=== PATIENT | male | born 1990 | race Caucasian/White ===

== ENCOUNTER 2016-08-11 08:32 | Inpatient (IN) | payer SELFPAY ==
[~2016-08-11] VITALS: Ht 175.3 cm; Wt 63.5 kg
[2016-08-11 08:56] VITALS: BP 158/85; PULSE 84; RESP 15; TEMP 98.3; O2SAT 100
[2016-08-11 09:43] LABS: AUTOMATED NEUTROPHIL # 5.5 TH/MM3 (1.8-7.7); BASOPHIL % 0.4 % (0.0-2.0); EOSINOPHIL # 0.1 TH/MM3 (0-0.4); EOSINOPHIL % 0.8 % (0.0-4.0); HEMATOCRIT 41.6 % (39.0-51.0); HEMO FLAGS DIFF FINAL; LYMPH % 17.8 % (9.0-44.0); LYMPHOCYTE # 1.3 TH/MM3 (1.0-4.8); MEAN CELL VOLUME 89.5 FL (80.0-100.0); MEAN CORPUSCULAR HEMOGLOBIN 31.5 PG (27.0-34.0); MEAN CORPUSCULAR HGB CONC 35.2 % (32.0-36.0); MONO % 4.7 % (0.0-8.0); NEUT % 76.3 % (16.0-70.0); PLATELET COUNT 221 TH/MM3 (150-450); RED BLOOD COUNT 4.65 MIL/MM3 (4.50-5.90); RED CELL DISTRIBUTION WIDTH 12.6 % (11.6-17.2); WHITE BLOOD COUNT 7.2 TH/MM3 (4.0-11.0)
[2016-08-11 09:58] LABS: ANION GAP 7 MEQ/L (5-15)
[2016-08-11 10:01] LABS: ALKALINE PHOSPHATASE 90 U/L (45-117); ALT (GPT) 23 U/L (12-78); AST (GOT) 9 U/L (15-37); BICARBONATE 27.1 MEQ/L (21.0-32.0); BLOOD UREA NITROGEN 8 MG/DL (7-18); CHLORIDE 106 MEQ/L (98-107); GLOMERULAR FILTRATION RATE 90 ML/MIN (>89); POTASSIUM 3.2 MEQ/L (3.5-5.1); SODIUM (NA) 140 MEQ/L (136-145); TOTAL BILIRUBIN ADULT 0.4 MG/DL (0.2-1.0)
[2016-08-11 12:15] LABS: AMPHETAMINE, URINE NEG (NEG); BARBITURATES, URINE NEG (NEG); COCAINE, URINE NEG (NEG)
[2016-08-11] MEDS ORDERED: POTASSIUM CHLORIDE 25 MEQ EFFERVESCENT TAB PO ONE (12:15)
--- NOTE | 2016-08-11 12:37 | PD ---
HPI Chief Complaint: Psychiatric Symptoms Time Seen by Provider: 09:07 Travel History International Travel<30 days: No Contact w/Intl Traveler<30days: No Traveled to known affect area: No History of Present Illness HPI 26-year-old male came to the emergency room for auditory hallucinations. Says that the voices are telling him to kill himself. He does not want to . He looks like he is responding to a internal stimuli. FOR[facility]LY [facility], [facility] Past Medical History Narrative Medical List of his past medical history as reviewed from the nursing note. Medical History: Denies Significant Hx Tetanus Vaccination: > 5 Years Influenza Vaccination: No Past Surgical History Surgical History: No Previous Surgery Social History Alcohol Use: No Tobacco Use: No Substance Use: Yes (MARIJUANA, HEMA, HEROIN) Allergies-Medications (Allergen,Severity, Reaction): Coded Allergies: No Known Allergies (Unverified , 08/11/16) Comments No known drug allergies. Reported Meds & Prescriptions Reported Meds & Active Scripts Active No Active Prescriptions or Reported Medications Narrative Medication List of his home medications reviewed from the nursing note. Review of Systems Except as stated in HPI: all other systems reviewed are Neg Physical Exam Narrative GENERAL: Awake, alert, no obvious distress SKIN: Warm and dry. HEAD: Atraumatic. Normocephalic. EYES: Pupils equal and round. No scleral icterus. No injection or drainage. ENT: No nasal bleeding or discharge. Mucous membranes pink and moist. NECK: Trachea midline. No JVD. CARDIOVASCULAR: Regular rate and rhythm. No murmur appreciated. RESPIRATORY: No accessory muscle use. Clear to auscultation. Breath sounds equal bilaterally. GASTROINTESTINAL: Abdomen soft, non-tender, nondistended. Hepatic and splenic margins not palpable. MUSCULOSKELETAL: No obvious deformities. No clubbing. No cyanosis. No edema. NEUROLOGICAL: Awake and alert. No obvious cranial nerve deficits. Motor grossly within normal limits. Normal speech. PSYCHIATRIC: Unable to assess. Patient seems to be responding to internal stimuli Data Data Last Documented VS Vital Signs Date Time Temp Pulse Resp B/P Pulse Ox O2 Delivery O2 Flow Rate FiO2 08/11/16 13:03 78 18 138/80 99 Room Air 08/11/16 08:56 98.3 Orders Complete Blood Count With Diff (08/11/16 09:07) Comprehensive Metabolic Panel (08/11/16 09:07) Drug Screen, Random Urine (08/11/16 09:07) Alcohol (Ethanol) (08/11/16 09:07) Psych Screen (08/11/16 09:07) Potassium Chloride Eff (K-Lyte Cl Eff) (08/11/16 12:15) Diet Regular Basic (08/11/16 Dinner) Admit Order (Ed Use Only) (08/11/16 ) Admit To Inpatient Psych (08/11/16 ) Vital Signs (Adult) ANTONIO.Q12H.E (08/11/16 15:51) Activity Oob Ad Jovanna (08/11/16 15:51) Level Of Observation (Psych) (08/11/16 15:51) Aims-Abnormal Invol Move Scale ONCE (08/11/16 15:51) Lorazepam (Ativan) (08/11/16 16:00) Lorazepam Inj (Ativan Inj) (08/11/16 16:00) Diphenhydramine (Benadryl) (08/11/16 16:00) Acetaminophen (Tylenol) (08/11/16 16:00) Magnesium Hydroxide Liq (Milk Of Magnesi (08/11/16 16:00) Al-Mag Hy-Si 40-40-4 Mg/Ml Liq (Mag-Al P (08/11/16 16:00) Nicotine 21 Mg Patch.24 Hr (Habitrol 21 (08/12/16 09:00) Benztropine (Cogentin) (08/11/16 16:00) Benztropine Inj (Cogentin Inj) (08/11/16 16:00) Basic Metabolic Panel (Bmp) (08/12/16 06:00) Lipid Profile (08/12/16 06:00) Magnesium (Mg) (08/12/16 06:00) Hemoglobin (Hgb) A1c (08/12/16 06:00) Remove Old Patch (08/12/16 09:00) Thyroid Stimulating Hormone (08/11/16 16:05) Rapid Plasmin Reagin Screen (08/11/16 16:05) Hiv Antibody Screen (08/11/16 16:05) Ammonia (08/11/16 16:05) Vitamin B12 (08/11/16 16:05) Ct Brain W/O Iv Contrast(Rout) (08/11/16 ) Labs Laboratory Tests Test 08/11/16 08/11/16 09:30 11:55 White Blood Count 7.2 TH/MM3 Red Blood Count 4.65 MIL/MM3 Hemoglobin 14.7 GM/DL Hematocrit 41.6 % Mean Corpuscular Volume 89.5 FL Mean Corpuscular Hemoglobin 31.5 PG Mean Corpuscular Hemoglobin 35.2 % Concent Red Cell Distribution Width 12.6 % Platelet Count 221 TH/MM3 Mean Platelet Volume 9.0 FL Neutrophils (%) (Auto) 76.3 % Lymphocytes (%) (Auto) 17.8 % Monocytes (%) (Auto) 4.7 % Eosinophils (%) (Auto) 0.8 % Basophils (%) (Auto) 0.4 % Neutrophils # (Auto) 5.5 TH/MM3 Lymphocytes # (Auto) 1.3 TH/MM3 Monocytes # (Auto) 0.3 TH/MM3 Eosinophils # (Auto) 0.1 TH/MM3 Basophils # (Auto) 0.0 TH/MM3 CBC Comment DIFF FINAL Differential Comment Sodium Level 140 MEQ/L Potassium Level 3.2 MEQ/L Chloride Level 106 MEQ/L Carbon Dioxide Level 27.1 MEQ/L Anion Gap 7 MEQ/L Blood Urea Nitrogen 8 MG/DL Creatinine 1.01 MG/DL Estimat Glomerular Filtration 90 ML/MIN Rate Random Glucose 105 MG/DL Calcium Level 8.9 MG/DL Total Bilirubin 0.4 MG/DL Aspartate Amino Transf 9 U/L (AST/SGOT) Alanine Aminotransferase 23 U/L (ALT/SGPT) Alkaline Phosphatase 90 U/L Total Protein 7.4 GM/DL Albumin 4.3 GM/DL Vitamin B12 Level 511 PG/ML Thyroid Stimulating Hormone 1.780 uIU/ML 3rd Gen Ethyl Alcohol Level LESS THAN 3 MG/DL Urine Opiates Screen NEG Urine Barbiturates Screen NEG Urine Amphetamines Screen NEG Urine Benzodiazepines Screen NEG Urine Cocaine Screen NEG Urine Cannabinoids Screen POS MDM Medical Decision Making Medical Screen Exam Complete: Yes Emergency Medical Condition: Yes Medical Record Reviewed: Yes Differential Diagnosis Psychosis, auditory hallucinations, substance abuse Narrative Course 12:30 PM patient is medically cleared for psych screen. Procedures EKG Prior to Arrival: No Scripts No Active Prescriptions or Reported Meds Yasmin Garibay MD Aug 11, 2016 12:37
[2016-08-11 13:03] VITALS: BP 138/80; PULSE 78; RESP 18; O2SAT 99
[2016-08-11] MEDS ORDERED: BENZTROPINE MESYLATE 2 MG/2 ML VIAL IM PRN (16:00)
[2016-08-11] MEDS ORDERED: LORazepam 2 MG/ML VIAL IM PRN (16:00)
[2016-08-11] MEDS ORDERED: BENZTROPINE MESYLATE 1 MG TAB PO PRN (16:00)
[2016-08-11] MEDS ORDERED: ALUMINUM/MAGNESIUM/SIMETH 30 ML CUP PO PRN (16:00)
[2016-08-11] MEDS ORDERED: MAGNESIUM HYDROXIDE SUSP 30 ML CUP PO PRN (16:00)
[2016-08-11] MEDS ORDERED: ACETAMINOPHEN 325 MG TAB PO PRN (16:00)
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
[2016-08-11 17:28] VITALS: BP 138/80; PULSE 78; RESP 18; O2SAT 99
--- NOTE | 2016-08-11 17:35 | RADRPT ---
EXAM DATE/TIME: 08/11/2016 17:06 [facility] COMPARISON: No previous studies available for comparison. INDICATIONS : Altered mental status. Auditory hallucinations. RADIATION DOSE: 56.35 CTDIvol (mGy) MEDICAL HISTORY : None SURGICAL HISTORY : None. ENCOUNTER: Initial ACUITY: 3 days PAIN SCALE: 0/10 LOCATION: cranial TECHNIQUE: Multiple contiguous axial images were obtained of the head. Using automated exposure control and adj ustment of the mA and/or kV according to patient size, radiation dose was kept as low as reasonably a chievable to obtain optimal diagnostic quality images. FINDINGS: CEREBRUM: The ventricles are normal for age. No evidence of midline shift, mass lesion, hemorrhage or acute in farction. No extra-axial fluid collections are seen. POSTERIOR FOSSA: The cerebellum and brainstem are intact. The 4th ventricle is midline. The cerebellopontine angle i s unremarkable. EXTRACRANIAL: The visualized portion of the orbits is intact. SKULL: The calvaria is intact. No evidence of skull fracture. CONCLUSION: Normal examination. Kristin Reagan MD on August 11, 2016 at 17:31 Board Certified Radiologist. This report was verified electronically.
[2016-08-11 18:30] VITALS: BP 127/70; PULSE 104; PULSE 68; RESP 17; O2SAT 98
[2016-08-11 20:16] VITALS: BP 149/81; PULSE 99; RESP 18; TEMP 99.1
[2016-08-11] MEDS: LORazepam 1 MG TAB PO PRN (20:26)
[2016-08-11] MEDS ORDERED: OLANZapine 2.5 MG TAB PO SCH (21:00)
[2016-08-12 05:20] VITALS: BP 93/52; PULSE 69; RESP 18; TEMP 97.6; O2SAT 97
[2016-08-12 07:58] LABS: ANION GAP 6 MEQ/L (5-15); BICARBONATE 28.9 MEQ/L (21.0-32.0); BLOOD UREA NITROGEN 12 MG/DL (7-18); CHLORIDE 109 MEQ/L (98-107); GLOMERULAR FILTRATION RATE 81 ML/MIN (>89); HDL CHOLESTEROL 76.4 MG/DL (40.0-60.0); LDL CHOLESTEROL 67 MG/DL (0-99); MAGNESIUM 2.1 MG/DL (1.5-2.5); SODIUM (NA) 144 MEQ/L (136-145)
[2016-08-12] MEDS: REMOVE OLD PATCH T-DERMAL SCH (08:48)
[2016-08-12] MEDS: NICOTINE 21 MG/24 HR PATCH T-DERMAL SCH (08:48)
[2016-08-12] MEDS: LORazepam 1 MG TAB PO PRN ×2 (09:09→22:13)
--- NOTE | 2016-08-12 11:50 | HHI.PYPN ---
Subjective Remarks Patient seen and examined with counselor. Chart reviewed. Case discussed with nursing staff reports patient was complaining of deprecatory auditory hallucinations. Apparently patient also became somewhat behaviorally disinhibited overnight and disrobed and ran down the melendez. On my examination today, the patient reports that he slept well with Zyprexa. He feels that his thoughts are more organized today. He still feels like he can perceive the thoughts of others and says "there is still bouncing off my head." He also endorses ongoing deprecatory auditory hallucinations. He denies side effects from medications. Agreeable to a titration of his Zyprexa. Review of Systems ROS Limitations: Psychotic, Poor Historian Other No physical complaints today Objective Alert: Yes [place]: Person, Place Mood: Calm Affect: Blunted Memory Intact: Comment (fair on clinical exam) Hallucinations: Auditory (deprecatory) Delusions: Yes Delusion Type: Paranoid Suicidal: Ideation (none) Homicidal: Ideation (none) Insight/Judgement Fair Remarks No motoric abnormalities noted. Thought processes fairly linear within delusional system. Speech within normal limits for rate, tone and volume Labs Test 08/11/16 08/12/16 11:55 07:12 Urine Opiates Screen NEG Urine Barbiturates Screen NEG Urine Amphetamines Screen NEG Urine Benzodiazepines Screen NEG Urine Cocaine Screen NEG Urine Cannabinoids Screen POS Sodium Level 144 MEQ/L Potassium Level 4.0 MEQ/L Chloride Level 109 MEQ/L Carbon Dioxide Level 28.9 MEQ/L Anion Gap 6 MEQ/L Blood Urea Nitrogen 12 MG/DL Creatinine 1.11 MG/DL Estimat Glomerular Filtration 81 ML/MIN Rate Random Glucose 93 MG/DL Calcium Level 9.0 MG/DL Magnesium Level 2.1 MG/DL Ammonia 17 MCMOL/L Triglycerides Level 48 MG/DL Cholesterol Level 153 MG/DL LDL Cholesterol 67 MG/DL HDL Cholesterol 76.4 MG/DL Cholesterol/HDL Ratio 2.00 RATIO Rapid Plasma Reagin NON-REACTIVE HIV (1&2) Antibody NEGATIVE Labs reviewed. First break psychosis workup unremarkable. Head CT read as negative for acute process. Vitals/IOs Vital Signs Date Time Temp Pulse Resp B/P Pulse Ox O2 Delivery O2 Flow Rate FiO2 08/12/16 05:20 97.6 69 18 93/52 97 08/11/16 18:30 Room Air Assessment & Plan Problem List: (1) Other psychotic disorder not due to a substance or known physiological condition ICD Code: F28 (2) Cannabis abuse ICD Code: F12.10 Assessment & Plan Titrate Zyprexa to 5 mg at bedtime. Could consider further titration over the weekend so long as this is well tolerated. I will order his blood pressure rechecked as it was somewhat low this morning. Continue other medications and care as ordered. Justification for Cont. Inpt. Impairments in reality construction. Medication changes. Risk for decompensation. Discharge Planning Pending psychiatric stabilization Request HC Surrog/Guard Advoc?: No Abdoulaye Preciado MD Aug 12, 2016 11:50
[2016-08-12 13:18] LABS: HEMOGLOBIN A1b 0.9 %; HEMOGLOBIN Ao 86.2 %; HEMOGLOBIN F 0.9 %; HEMOGLOBIN LA1C 1.9 %; HEMOGLOBIN P3 3.6 %
[2016-08-12 14:17] VITALS: BP 132/69; PULSE 70; O2SAT 96
[2016-08-12 18:32] VITALS: BP 133/66; PULSE 101; RESP 16; TEMP 98.5; O2SAT 98
[2016-08-12] MEDS: OLANZapine 5 MG TAB PO SCH (20:47)
[2016-08-13 05:25] VITALS: BP 134/73; PULSE 82; RESP 18; TEMP 98.4; O2SAT 99
[2016-08-13] MEDS: NICOTINE 21 MG/24 HR PATCH T-DERMAL SCH (08:34)
[2016-08-13] MEDS: REMOVE OLD PATCH T-DERMAL SCH (09:00)
--- NOTE | 2016-08-13 16:55 | HHI.PYPN ---
Subjective Remarks Patient was seen and case discussed with nursing. Patient is very pleasant and cooperative during the interview. Per nursing he has been helping limited. Past tasks throughout the day. Patient is logical, organized. Patient has good insight and realizes that his paranoia and hallucinations are not real. Patient says he notices an improvement in the frequency of his voices telling him to kill himself. Continues to feel paranoid and turns his head every sound. He says he has a strange sensation that somebody is poisoning his food but realizes it is not real. Denies suicidal ideations intent or plan Objective Alert: Yes [place]: Person, Place Mood: Calm Affect: Blunted Memory Intact: Comment (fair on clinical exam) Hallucinations: Auditory (deprecatory) Delusions: Yes Delusion Type: Paranoid Suicidal: Ideation (none) Homicidal: Ideation (none) Insight/Judgement Fair Vitals/IOs Vital Signs Date Time Temp Pulse Resp B/P Pulse Ox O2 Delivery O2 Flow Rate FiO2 08/13/16 05:25 98.4 82 18 134/73 99 08/11/16 18:30 Room Air Intake and Output 08/12/16 08/12/16 08/13/16 08:00 16:00 00:00 Intake Total 480 ml Balance 480 ml Assessment & Plan Problem List: (1) Other psychotic disorder not due to a substance or known physiological condition ICD Code: F28 (2) Cannabis abuse ICD Code: F12.10 Assessment & Plan Continue current treatment plan Justification for Cont. Inpt. Patient will decompensate in a less restrictive setting Request HC Surrog/Guard Advoc?: No Pankaj Rosario DO Aug 13, 2016 16:55
[2016-08-13] MEDS: OLANZapine 5 MG TAB PO SCH (20:29)
[2016-08-13 22:15] VITALS: BP 127/75; PULSE 85; RESP 18; TEMP 98.5; O2SAT 98
[2016-08-14 06:15] VITALS: BP 127/90; PULSE 90; RESP 18; TEMP 98.7; O2SAT 96
[2016-08-14] MEDS: NICOTINE 21 MG/24 HR PATCH T-DERMAL SCH (09:00)
[2016-08-14] MEDS: REMOVE OLD PATCH T-DERMAL SCH (09:00)
--- NOTE | 2016-08-14 16:43 | HHI.PYPN ---
Subjective Remarks Patient was seen and case discussed with nursing. Patient is pleasant and cooperative with exam. Behaving well on the unit. Says that today, his auditory hallucinations are completely gone. Also says he enjoys talking to himself and that he is not responding to voices but he talks out loud to himself discussing various options. Patient and goes into detail about he is making that decision he will discussed the pros and cons with himself. Thought process is mildly disorganized. Patient said he made a plan with his father who will help him out after discharge. Social with others, playing basketball. Denies suicidal ideation intent or plan. Continues to have good insight Objective Alert: Yes [place]: Person, Place Mood: Calm Affect: Blunted Memory Intact: Comment (fair on clinical exam) Hallucinations: Auditory (deprecatory) Delusions: Yes Delusion Type: Paranoid Suicidal: Ideation (none) Homicidal: Ideation (none) Insight/Judgement Good Vitals/IOs Vital Signs Date Time Temp Pulse Resp B/P Pulse Ox O2 Delivery O2 Flow Rate FiO2 08/14/16 06:15 98.7 90 18 127/90 96 08/11/16 18:30 Room Air Assessment & Plan Problem List: (1) Other psychotic disorder not due to a substance or known physiological condition ICD Code: F28 (2) Cannabis abuse ICD Code: F12.10 Assessment & Plan Continue current treatment plan Justification for Cont. Inpt. Patient will decompensate in a less restrictive setting Request HC Surrog/Guard Advoc?: No Pankaj Rosario DO Aug 14, 2016 16:43
[2016-08-14 18:28] VITALS: BP 117/73; PULSE 85; RESP 17; TEMP 98.1; O2SAT 99
[2016-08-14] MEDS: OLANZapine 5 MG TAB PO SCH (20:49)
[2016-08-14] MEDS: LORazepam 1 MG TAB PO PRN (22:15)
[2016-08-15 05:55] VITALS: BP 119/58; PULSE 72; RESP 18; TEMP 97.8; O2SAT 99
[2016-08-15] MEDS: NICOTINE 21 MG/24 HR PATCH T-DERMAL SCH (08:35)
[2016-08-15] MEDS: REMOVE OLD PATCH T-DERMAL SCH (08:39)
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
[2016-08-15 18:49] VITALS: BP 116/56; PULSE 57; RESP 18; TEMP 97.6; O2SAT 99
[2016-08-15] MEDS: OLANZapine 5 MG TAB PO SCH (20:48)
[2016-08-15] MEDS: LORazepam 1 MG TAB PO PRN (20:49)
[2016-08-16 05:41] VITALS: BP 117/56; PULSE 51; RESP 16; TEMP 97.6; O2SAT 98
[2016-08-16] MEDS: NICOTINE 21 MG/24 HR PATCH T-DERMAL SCH (09:00)
[2016-08-16] MEDS: REMOVE OLD PATCH T-DERMAL SCH (09:00)
--- NOTE | 2016-08-16 11:42 | HHI.PYPN ---
Subjective Remarks Patient seen and examined with counselor. Chart reviewed. Case discussed with counselor, nursing staff and occupational therapist in treatment team. Per nursing staff, the patient seems more frankly paranoid. He reportedly told nursing staff that he has an aunt in the that is plotting against him. Occupational therapist says that the patient is able to present fairly well in groups without much evident psychosis. On my examination today, the patient says that he "feel[s] like a zombie; that's what drugs do." He is referring here to his psychopharmacologic regimen, and I endeavor to work with him to find an alternative that would suit him better, but the patient declines any medication adjustment today and wishes to continue with the Zyprexa as ordered. He is fairly irritable. He is paranoid about returning to his father's home by bus because it would have to go through [place] and he has some outstanding warrant for a traffic infraction there. He does continue to believe people are after him and notes that "there are so may people that I have pissed off. I've been looking up info online that is well above my security level." No other side effects from medications. Review of Systems ROS Limitations: Psychotic, Poor Historian Other No physical complaints today. Objective Alert: Yes [place]: Person, Place Mood: Calm Affect: Labile Memory Intact: Comment (Remains fair on clinical exam) Hallucinations: Other (Appears int stim) Delusions: Yes Delusion Type: Paranoid Suicidal: Ideation (Denies SI) Homicidal: Ideation (Denies HI) Insight/Judgement Poor Remarks No abnormal motor movements noted. Thought process fairly linear. Speech within normal limits for rate, tone and volume. Labs Labs reviewed. No new labs. 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 He is reluctant to make a medication adjustment today and I will continue his Zyprexa 10 mg at bedtime as ordered in the hopes that he acclimates to this dose. If it seems likely that he will require additional antipsychotic action and if he fails to acclimate to the Zyprexa, we may need to consider an alternative antipsychotic if the patient is willing. Continue other medications and care as ordered. Justification for Cont. Inpt. Impairments in reality testing. Risk for decompensation. Discharge Planning Pending psychiatric stabilization Request HC Surrog/Guard Advoc?: No Abdoulaye Preciado MD Aug 16, 2016 11:42
[2016-08-16 20:00] VITALS: BP 111/74; PULSE 80; RESP 16; TEMP 98.8; O2SAT 97
[2016-08-16] MEDS: diphenhydrAMINE HCL 50 MG CAP PO PRN (21:01)
[2016-08-16] MEDS: OLANZapine 5 MG TAB PO SCH (21:01)
[2016-08-17 06:43] VITALS: BP 135/65; PULSE 93; RESP 16; TEMP 98.4; O2SAT 97
[2016-08-17] MEDS: REMOVE OLD PATCH T-DERMAL SCH (09:00)
[2016-08-17] MEDS: NICOTINE 21 MG/24 HR PATCH T-DERMAL SCH (09:00)
--- NOTE | 2016-08-17 09:17 | HHI.PYPN ---
Subjective Remarks Patient seen and examined with counselor. Chart reviewed. Case discussed with nurse. On my examination today, patient reports that he feels much improved. He remains a little overly formal but his paranoia is significantly lessened. He denies AVH. He denies SI or HI. Some ongoing mildly outr beliefs, such as being able to perceive others' "energy," but no jenn delusions. He is tolerating the Zyprexa well and says that he does not feel like a zombie today. Patient requests that we plan for discharge tomorrow as he feels improved. Review of Systems Other No physical complaints today. Objective Alert: Yes [place]: Person, Place Mood: Calm Affect: Euthymic Memory Intact: Comment (At least fair) Hallucinations: Other (Denies AVH) Delusions: No Delusion Type: Other (No jenn delusions) Suicidal: Ideation (Denies SI) Homicidal: Ideation (Denies HI) Insight/Judgement Fair Remarks No abnormal motor movements noted. TP fairly linear. Labs Labs reviewed. No new labs. 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 Continue Zyprexa as ordered. Continue other medications and care as ordered. Justification for Cont. Inpt. Monitor overnight. Discharge Planning Anticipate discharge tomorrow, , barring clinical worsening. Patient reports he would now like to stay with his uncle in [place] if he will have him. Counselor to assist with final discharge planning. Request HC Surrog/Guard Advoc?: No Abdoulaye Preciado MD Aug 17, 2016 09:17
[2016-08-17 21:44] VITALS: BP 125/72; PULSE 63; RESP 20; TEMP 98.3; O2SAT 97
[2016-08-17] MEDS: diphenhydrAMINE HCL 50 MG CAP PO PRN (22:25)
[2016-08-17] MEDS: OLANZapine 5 MG TAB PO SCH (22:25)
[2016-08-18 05:45] VITALS: BP 133/86; PULSE 91; RESP 18; TEMP 97.9; O2SAT 97
[2016-08-18] MEDS: REMOVE OLD PATCH T-DERMAL SCH (09:00)
[2016-08-18] MEDS: NICOTINE 21 MG/24 HR PATCH T-DERMAL SCH (09:00)
[2016-08-18] MEDS ORDERED: ZYPR10TA PO (10:58)
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
== END 2016-08-18 16:15 | disposition home or self-care (01) | DRG 885 ==
LOC: NEPC 08:32 → NEDA 16:06 → UNDOADMIN 16:06 → H270 18:52
PROVIDERS: ADMIT Psychiatry & Neurology Psychiatry; ATTEND Psychiatry & Neurology Psychiatry
DX: F28 Other psychotic disorder not due to a substance or known physiological condition (principal); E87.6 Hypokalemia; F12.10 Cannabis abuse, uncomplicated
CPT/HCPCS: 70450; 80048; 80053; 80061; 80307; 80320; 82140; 82607; 83036; 83735; 84443; 85025; 86592; 86703; 99284; Q0163